=== PATIENT | female | born 1990 | race Caucasian/White ===

== ENCOUNTER 2022-03-24 23:41 | Emergency (ER) | payer MEDICARE, BC, MEDICAID ==
[~2022-03-24] VITALS: Ht 142.2 cm; Wt 70.0 kg
[2022-03-25] MEDS ORDERED: normal saline 1000ML IV soln IVB ONE (01:05)
[2022-03-25] MEDS ORDERED: BEBTELOVIMAB 175 MG/2 ML VIAL IV ONE (01:05)
[2022-03-25 02:12] LABS: BASOPHILS % (AUTO) 0.9 % (0-1); EOSINOPHILS % (AUTO) 0.1 % (0-6); HEMOGLOBIN 13.2 g/dl (12.0-16.0); LYMPHOCYTES # (AUTO) 0.8 X10'3 (1.1-4.8); LYMPHOCYTES % (AUTO) 30.3 % (21-51); MEAN CORPUSCULAR HEMOGLOBIN 33.5 PG (27.0-31.0); MEAN CORPUSCULAR HGB CONC 33.8 g/dL (33.0-36.5); MEAN CORPUSCULAR VOLUME 99.1 FL (78-98); MEAN PLATELET VOLUME 9.4 FL (7.4-10.4); MONOCYTES # (AUTO) 0.4 X10'3 (0-0.9); MONOCYTES % (AUTO) 15.8 % (2-12); NEUTROPHILS # (AUTO) 1.3 X10'3 (1.8-7.7); NEUTROPHILS % (AUTO) 52.9 % (42-75); PLATELET COUNT 140 X10'3 (140-440); RED BLOOD COUNT 3.94 X10'6 (4.20-5.60); RED CELL DISTRIBUTION WIDTH 15.3 % (11.5-14.5); WHITE BLOOD COUNT 2.5 X10'3 (4.5-11.0)
[2022-03-25 02:15] LABS: ALANINE AMINOTRANSFERASE 27 U/L (12-78); ALBUMIN 3.1 G/DL (3.4-5.0); ALBUMIN/GLOBULIN RATIO 0.8 (1.1-1.5); ALKALINE PHOSPHATASE 61 IU/L (46-116); ANION GAP 9 (8-16); ASPARTATE AMINO TRANSFERASE 22 U/L (10-37); BILIRUBIN,TOTAL 0.1 MG/DL (0.1-1.0); BLOOD UREA NITROGEN 15 MG/DL (7-18); BUN/CREATININE RATIO 16.7 (6.6-38.0); CALCIUM 7.9 MG/DL (8.5-10.1); CHLORIDE 105 MMOL/L (99-107); GLUCOSE 119 MG/DL (70-104); SODIUM 139 MMOL/L (135-145); TOTAL PROTEIN 7.1 G/DL (6.4-8.2); eGFR 73 ML/MIN
[2022-03-25 02:18] LABS: POTASSIUM 3.8 MMOL/L (3.5-5.1)
[2022-03-25 02:37] LABS: MICROCYTOSIS 1+; TOTAL CELLS COUNTED 100
[2022-03-25 02:38] LABS: PLATELET ESTIMATE NORMAL
[2022-03-25 03:31] LABS: CLARITY,URINE SLIGHTLY CLOUDY (Clear); GLUCOSE, URINE NEGATIVE (Neg); KETONES,URINE NEGATIVE (Neg); LEUKOCYTE ESTERASE ,URINE NEGATIVE (Neg); NITRITES, URINE NEGATIVE (Neg); OCCULT BLOOD,URINE LARGE (Neg); PROTEIN,URINE NEGATIVE (Neg); UROBILINOGEN,URINE 0.2 E.U/dL (0.2-1.0)
[2022-03-25 03:37] LABS: COLOR,URINE PINK (Yellow); UA COLLECTION TYPE CLN CATCH MIDSTREAM
[2022-03-25 03:38] LABS: BACTERIA,URINE NONE SEEN /HPF (Neg); RBC,URINE TNTC /HPF (0-2); SQUAMOUS EPITHELIAL CELL,UR NONE SEEN /LPF (FEW); WBC,URINE NONE SEEN /HPF (0-4)
[2022-03-25 04:42] VITALS: BP 97/62
== END 2022-03-25 04:46 | disposition home or self-care (01) ==
LOC: ER 23:42
DX: U07.1 COVID-19 (principal); E03.9 Hypothyroidism, unspecified; Z88.2 Allergy status to sulfonamides
CPT/HCPCS: 36415; 70450; 72125; 80053; 81001; 85007; 85025; 96360; 99285; J7030; M0222; Q0222